=== PATIENT | female | born 1970 | race Caucasian/White ===

== ENCOUNTER 2022-11-24 08:21 | Outpatient (CLI) | payer BC, SELFPAY ==
[2022-11-24 13:47] LABS: Albumin* 3.9 g/dL (3.3-5.0)
[2022-11-24 13:50] LABS: Alanine Aminotransferase* 19 U/L (4-35); Alkaline Phosphatase* 51 U/L (40-150); Aspartate Amino Transferase* 24 U/L (12-35); Bilirubin Direct* 0.3 mg/dL (0.0-0.5); Bilirubin Total* 0.6 mg/dL (0.1-1.5); Total Protein* 6.5 g/dL (6.0-8.3)
== END 2022-11-24 08:22 | disposition home or self-care (01) ==
LOC: LKVREF 08:22
PROVIDERS: PCP Emergency Medicine; Visit Provider Emergency Medicine
DX: B35.1 Tinea unguium (principal)
CPT/HCPCS: 80076